=== PATIENT | female | born 1940 | race Caucasian/White ===

== ENCOUNTER 2024-05-12 09:36 | Emergency (ER) | payer MEDICARE ==
[~2024-05-12] VITALS: Ht 154.9 cm; Wt 70.0 kg
[2024-05-12 09:38] VITALS: BP 129/47; PULSE 69; RESP 20; TEMP 36.8; O2SAT 98
[2024-05-12 11:06] LABS: CHLORIDE 108 mEq/L (98-107); POTASSIUM 3.7 mEq/L (3.5-5.1); SODIUM 142 mEq/L (136-145)
[2024-05-12 11:07] LABS: CARBON DIOXIDE 24 mEq/L (21-32)
[2024-05-12 11:10] LABS: BASOPHILS % 0.8 % (0.0-2.0); EOSINOPHILS % 0.4 % (0.0-5.0); HEMATOCRIT. 42.6 % (36.0-48.0); HEMOGLOBIN. 13.6 g/dL (12.0-16.0); LYMPHOCYTES % 15.7 % (20.0-50.0); MEAN CORPUSCULAR HEMOGLOBIN 27.2 pg (28.0-32.0); MEAN CORPUSCULAR HGB CONC 31.8 g/dL (31.0-37.0); MEAN CORPUSCULAR VOLUME 85.3 fL (81.0-99.0); MEAN PLATELET VOLUME 8.5 fl (7.4-10.4); MONOCYTES % 6.3 % (2.0-8.0); NEUTROPHILS % 76.8 % (40.0-76.0); PLATELET 252 x1000/uL (130-400); RED CELL DISTRIBUTION WIDTH 15.3 % (11.6-14.6); WHITE BLOOD COUNT 7.6 x1000/uL (4.5-11.0)
[2024-05-12 11:12] LABS: CREATININE 0.9 mg/dL (0.6-1.0); GLUCOSE 107 mg/dL (70-105); UREA NITROGEN BLOOD 18 mg/dL (9-23)
[2024-05-12 11:13] LABS: TROPONIN I HIGH SENSITIVITY 18 ng/L (3.0-34)
[2024-05-12] MEDS ORDERED: POLY17PO3 MT (11:40)
[2024-05-31] MEDS ORDERED: GABA-1180 PO (04:03)
[2024-05-31] MEDS ORDERED: LEVO75TA7 PO (04:03)
[2024-05-31] MEDS ORDERED: LEVO-65 MT (11:04)
== END 2024-05-12 12:26 | disposition home or self-care (01) ==
LOC: ER 09:36
DX: K59.00 Constipation, unspecified (principal); I10 Essential (primary) hypertension; E11.9 Type 2 diabetes mellitus without complications; Z88.2 Allergy status to sulfonamides; Z79.899 Other long term (current) drug therapy
CPT/HCPCS: 36415; 71045; 74176; 80048; 84484; 85025; 99284